=== PATIENT | female | born 1965 | race Caucasian/White ===

== ENCOUNTER → 2019-10-18 | Outpatient (CLI) | payer MEDICAID, SELFPAY ==
--- NOTE | 2019-10-15 14:45 | FLU_PTH ---
PATIENT: ASHER ISRAEL LOC: [facility] U#:[id number] AGE/SX: 53/F ROOM: RE10/18/[address]: Dr. Quang Mix DO : 1965 BED: DIS: 10/18/2019 SPEC #: [id number] RECD: 10/18/19 12:12 STATUS: AZRA REQ #: [id number] CAMILA: 10/15/19 14:[address]: Nazanin Willard DEPT: CYTOLOGY RECD BY: Kurt Altman ENTERED: 10/19/19 09:27 SP TYPE: Fluid OTHR DR: Dr. Quang Mix DO Tissues: A - Thyroid gland, NOS B - Thyroid gland, NOS Procedures: Special Stain Group II Surgery Specimen Level IV Cytospin Fluid Cytology Other Comments: @ Ordering doctor for SSII edited from to DR.LWANG Catherine by JOSEY at 10/19/19 1157 @ Ordering doctor for SUIV edited from to DR.LWANG Catherine by JOSEY at 10/19/19 115Nestor @ Ordering doctor for CYSPIN edited from to DR.LWANG Catherine by JOSEY at 10/19/19 115Nestor @ Ordering doctor for CYOTHER edited from to DR.LWANG Catherine by JOSEY at 10/19/19 1157 @ Submitting doctor edited from to DR.LWANG Catherine by RGOLATONYA at 10/19/19 1157 HEADER OPERATION: Ultrasound-guided fine needle aspiration of right thyroid PRE-OP DIAGNOSIS: Thyroid nodules TISSUE SUBMITTED: A - FNA right thyroid fluid for cytology, B - FNA right thyroid 6 slides DIAGNOSIS CYTOLOGY A. Fine needle aspiration, right thyroid nodule (cytospin and cell block): Adequate for evaluation. Negative, consistent with benign follicular nodule. B. Fine needle aspiration, right thyroid nodule (smears): Adequate for evaluation. Negative, consistent with benign follicular/colloid nodule. AM:evita 10/20/19 CYTOLOGY STUDY Slides are reviewed. CYTOLOGY GROSS A - Received is 30 ml of brown cloudy fluid labeled with the patient's name and and designated per the requisition as right thyroid. Submitted for cytology preparation including cell block. B - Received are six smears labeled with the patient's name and designated per the requisition as right thyroid. Submitted for staining. / evita 10/19/19 TC:5 CPT: 68751, 84704, 21150
== END | disposition home or self-care (01) ==
PROVIDERS: Visit Provider Internal Medicine Hematology & Oncology
DX: E04.1 Nontoxic single thyroid nodule (principal)
CPT/HCPCS: 88108; 88161; 88305; 88313

== ENCOUNTER → 2020-07-03 | Outpatient (CLI) | payer MEDICAID, SELFPAY ==
[2020-07-03 12:43] LABS: D-Dimer Quantitative (DVT/PE) 0.28 FEU/ug/m (0.27-0.49)
== END | disposition home or self-care (01) ==
LOC: LABSPEC 12:22
PROVIDERS: Referring Provider Internal Medicine Hematology & Oncology; Visit Provider Internal Medicine Hematology & Oncology
DX: Z34.90 Encounter for supervision of normal pregnancy, unspecified, unspecified trimester (principal); R05 Cough; R06.00 Dyspnea, unspecified; R06.89 Other abnormalities of breathing
CPT/HCPCS: 85379